=== PATIENT | male | born 1950 | race Caucasian/White ===

== ENCOUNTER → 2017-07-27 | Outpatient (CLI) | payer MEDICARE, BC | END | disposition home or self-care (01) | LOC: GMAH 10:19 | PROVIDERS: ATTEND Family Medicine | DX: Z12.5 Encounter for screening for malignant neoplasm of prostate (principal); E78.2 Mixed hyperlipidemia | CPT/HCPCS: 84443; 84550; G0103 ==

== ENCOUNTER → 2017-12-17 | Outpatient (CLI) | payer MEDICARE ==
--- NOTE | 2017-12-19 08:13 | RAD ---
EXAM DESCRIPTION: Knee,Right Complete CLINICAL HISTORY: 67 years Male, PAIN IN RIGHT KNEE COMPARISON: None. FINDINGS: 4 views of the right knee show postoperative changes related previous right knee plasty. No loosening or other hardware complication. No fracture or malalignment. No joint effusion. No suspicious radiopaque foreign body or soft tissue gas. IMPRESSION: Uncomplicated postoperative changes in the right knee, otherwise unremarkable exam. Electronically signed by: Crow Lira MD 12/19/2017 8:12 AM [facility]
--- NOTE | 2017-12-19 08:22 | RAD ---
EXAM DESCRIPTION: Pelvis CLINICAL HISTORY: 67 years Male, PAIN IN RIGHT HIP COMPARISON: None. FINDINGS: 2 AP views of the pelvis show no displaced pelvic fracture. Mild bilateral hip joint space narrowing is noted. The pubic symphysis is anatomically aligned, and the sacroiliac joints are unremarkable. Mild degenerative calcifications arise from the anterior margins of the iliac bones bilaterally. 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 Otherwise unremarkable exam. Electronically signed by: Crow Lira MD 12/19/2017 8:21 AM [facility]
== END ==
LOC: RAD 13:53
PROVIDERS: ATTEND Orthopaedic Surgery
DX: M25.561 Pain in right knee (principal); M25.551 Pain in right hip; Z98.890 Other specified postprocedural states

== ENCOUNTER → 2018-08-02 | Outpatient (CLI) | payer MEDICARE | LOC: GMAH 10:28 | PROVIDERS: ATTEND Family Medicine | DX: I10 Essential (primary) hypertension (principal); E78.2 Mixed hyperlipidemia; Z12.5 Encounter for screening for malignant neoplasm of prostate | CPT/HCPCS: 84443; 84550; G0103 ==

== ENCOUNTER → 2019-08-08 | Outpatient (CLI) | payer MEDICARE | LOC: GMA MATASK 11:26 | PROVIDERS: ATTEND Family Medicine | DX: I10 Essential (primary) hypertension (principal); Z12.5 Encounter for screening for malignant neoplasm of prostate | CPT/HCPCS: 84443; 84550; 85025; G0103 ==